=== PATIENT | male | born 1955 | race Two or more races ===

== ENCOUNTER 2024-08-10 11:27 | Outpatient (AMB) | payer OTHER, MEDICARE, SELFPAY ==
[2024-08-10 11:45] VITALS: BP 159/85; PULSE 61; RESP 19; TEMP 36.3; O2SAT 97; BMI 26.4
--- NOTE | 2024-08-10 11:45 | PD.GSCLVISIT ---
Vital Signs - [facility] 08/10/24 11:45 Height 1.7 m Height Method Stated Weight 76.232 kg Weight Measurement Method Standing Scale BMI 26.4 BP 159/85 H Blood Pressure Source Automatic Cuff Blood Pressure Location Left Upper Arm Position Sitting Respiration 19 Pulse 61 Pulse Source Monitor Temp 97.4 F Temp Source Temporal Artery Scan Pulse Oximetry (%) 97 Oxygen Delivery Method Room Air Med/Allergies Allergies & Medications Allergies No Known Allergies Allergy (Verified 08/10/24 11:47) Medication Reconciliation atorvastatin 40 mg tablet 40 mg PO QDAY 11/05/22 [History Confirmed 08/10/24] lisinopril 10 mg tablet 10 mg PO QDAY 11/05/22 [History Confirmed 08/10/24] metformin 1,000 mg tablet 1,000 mg PO BID 11/05/22 [History Confirmed 08/10/24] sitagliptin phosphate 100 mg tablet (Januvia) 100 mg PO QDAY 11/05/22 [History Confirmed 08/10/24] MA Intake Visit Data Collection New Patient or Established: Established Patient (seen at [facility] within 3 years) Seen by Clinical Staff ONLY (RN/MA): No Reason for Visit:: COLON RESULTS Pain Present Currently: No Human Service Coordinator Required: Yes PCP or OBGYN visit in last 3 months: Yes Hx Now: No Do You Feel Safe at Home: Yes Authorities Contacted: N/A Smoking Status Smoking Status: Never smoker Immunization / Flu Flu Vaccine in the Last 12 Months: No Flu Vaccine Exclusion Criteria: Refused by Patient Past Medical History Past Medical History NEUROLOGIC: Negative Neurological Disorders or Seizures CARDIAC: Positive Cardiac Disorders, Myocardial Infarction (2013), Hypercholesterolemia (PO MED) and Hypertension (PO MED); Negative Congestive Heart Failure RESPIRATORY: Negative Chronic Obstructive Pulmonary Disease (COPD) GASTROINTESTINAL: Positive Gastrointestinal Disorders and Colorectal Cancer; Negative Hepatitis GENITOURINARY: Negative Genitourinary Disorders, Renal Disease or Benign Prostatic Hyperplasia MUSCULOSKELETAL: Positive Arthritis (HANDS) ENDOCRINE: Positive Endocrine Disorders and Diabetes Mellitus Type 2 (PO MED); Negative Diabetes Mellitus Type 1 HEMATOLOGIC: Positive Blood Disorders and Anemia OTHER HISTORY: Positive Blood Transfusions, Cancer and Colorectal Cancer; Negative Hospitalization, Down Syndrome, Developmental Delay, Shingles, Falls, Blood Transfusion Reaction, Anesthesia Reactions, Chemotherapy, Radiation Therapy, Human Immunodeficiency Virus (HIV), Chicken Pox, Measles, Mumps, Rubella (Thai Measles), Pertussis or Clostridium Difficile Surgical History SURGICAL: Positive Cardiac Surgery, Coronary Stent, Cardiac Catheterization, Angiogram and Bowel Surgery (PARTIAL COLECTOMY) Social History SMOKING STATUS: Smoking status: Never smoker ALCOHOL: Alcohol Intake: Current HOUSING: Housing: House HPI HPI Narrative 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 Pt reports feeling well overall with no complaints ROS Review of Systems Systems Reviewed: All systems reviewed, normal except as documented Objective/Exam General General Appearance: alert, cooperative and well groomed Resp Respiratory exam: Absent respiratory distress Results Colonoscopy report reviewed--four small polyps Pathology of polyps reviewed (early tubular adenoma <1cm, normal colonic mucosa) Assessment & Plan Diagnosis / Problem List (1) Encounter to discuss colonoscopy results: Status: Acute Assessment & Plan: 68M with HTN, HLD, DM s/p R hemicolectomy for T2N0 adenocarcinoma 05/2023, with surveillance colonoscopy 06/2024 showing small 3 small early tubular adenomas. I explained to pt his next colonoscopy should be done in 2026. All questions were answered and pt expressed understanding Advanced Care Planning Advance care planning discussed with:: patient Office Procedures GNS Level of Care Nursing/Assessment Patient Status: Established Patient Nursing Assessment/Reassesment: Medication Reconciliation, Update PMH in EMR and Vital Signs Coordination of Care: Complex Care and Chronic Disease 1-5, Consent,records obtained, informed consent, Education Simp Pt/Fam, Results/Orders obtained and Staff clarify orders Special Needs: Language special needs Established Patient Charge Established Patient Point Assignment: 90 Established Patient Point Charge: EP Level 3 (80-115) Patient Portal Questionaires Social History Living Situation History Housing: House Tobacco History Smoking Status: Never smoker Alcohol History Alcohol Intake: Current Domestic Abuse History Do You Feel Safe at Home: Yes Review of Systems Report any current symptoms Only answer those that you have currently: Past Medical History Past Medical History Have you ever been diagnosed with any of the following: Neurological Problems Seizures: No Cardiology Problems Myocardial Infarction: Yes (2013) Hypercholesterolemia: Yes (PO MED) Congestive Heart Failure: No Hypertension: Yes (PO MED) Respiratory Problems Chronic Obstructive Pulmonary Disease (COPD): No Stomache/Intestinal Problems Hepatitis: No Colorectal Cancer: Yes Genital/Urinary Problems Renal Disease: No Benign Prostatic Hyperplasia: No Musculoskeletal Problems Arthritis: Yes (HANDS) Endocrine Problems Diabetes Mellitus Type 1: No Diabetes Mellitus Type 2: Yes (PO MED) Blood Problems Anemia: Yes Other Problems Hospitalization: No Down Syndrome: No Developmental Delay: No Shingles: No Falls: No Blood Transfusions: Yes Blood Transfusion Reaction: No Anesthesia Reactions: No Chemotherapy: No Radiation Therapy: No Human Immunodeficiency Virus (HIV): No Chicken Pox: No Measles: No Mumps: No Rubella (Thai Measles): No Pertussis: No Clostridium Difficile: No Cancer: Yes
== END 2024-08-10 12:09 | disposition home or self-care (01) ==
LOC: HODSRG 11:27
PROVIDERS: PCP Family Medicine; Referring Provider Family Medicine; Supervising Provider Surgery; Visit Provider Surgery
DX: Z48.815 Encounter for surgical aftercare following surgery on the digestive system (principal); D12.6 Benign neoplasm of colon, unspecified
CPT/HCPCS: 99213; G0463